=== PATIENT | female | born 1940 ===

== ENCOUNTER 2022-01-15 08:14 | Outpatient (CLI) | payer OTHER ==
[~2022-01-15 08:14] MED LIST: ASA81 MG PO; CRESTOR5 MG PO; HYZAAR 50-12.1 UDTAB PO; METFORMIN HCL500 M1 PO; SYNTHROID88 MCG PO; [UNRECOGNIZED DRUG - OTHER] PO
== END 2022-01-15 08:33 | disposition home or self-care (01) ==
LOC: TOM 08:14
DX: D50.9 Iron deficiency anemia, unspecified (principal)